=== PATIENT | male | born 1960 | race Caucasian/White ===

== ENCOUNTER 2018-11-02 22:57 | Inpatient (IN) | payer OTHER ==
[2018-11-02] MEDS: DILTIAZEM 25 MG INJ IV (23:43)
[2018-11-02] MEDS: ASPIRIN 325 MG TAB PO (23:43)
[2018-11-03] MEDS: DILTIAZEM 60 MG TAB PO (00:11)
[2018-11-03] MEDS: DILTIAZEM-D5W 125MG/125ML DRIP 125 ML IV ×2 (00:19→21:15)
[2018-11-03] MEDS ORDERED: ACETAMINOPHEN 325 MG TAB PO (01:00)
[2018-11-03] MEDS ORDERED: ONDANSETRON 4 MG INJ IV ×2 (01:00→04:00)
[2018-11-03] MEDS ORDERED: NITROGLYCERIN (SL) 0.4 MG TAB SL (04:00)
[2018-11-03] MEDS ORDERED: NACL 0.9% 3 ML SYG IV (04:00)
[2018-11-03] MEDS: SOD CHLORIDE 0.9% 500 ML IV (04:54)
[2018-11-03] MEDS ORDERED: ASPIRIN (EC) 325 MG TAB PO (09:00)
[2018-11-03] MEDS: ENOXAPARIN 40 MG/0.4 ML SYG SC (10:06)
[2018-11-03] MEDS: METOPROLOL (XL) 25 MG TAB PO (14:20)
[2018-11-04] MEDS: METOPROLOL (XL) 25 MG TAB PO (08:23)
[2018-11-04] MEDS: DIGOXIN 500 MCG INJ IV (15:42)
[2018-11-04] MEDS: DILTIAZEM 60 MG TAB PO ×2 (15:43→18:00)
[2018-11-04] MEDS: SOD CHLORIDE 0.9% 100 ML (16:33)
[2018-11-04] MEDS: IOHEXOL 100 ML (16:33)
[2018-11-04] MEDS: DILTIAZEM-D5W 125MG/125ML DRIP 125 ML IV (20:39)
[2018-11-04] MEDS: ACETAMINOPHEN 325 MG TAB PO (22:34)
[2018-11-05] MEDS: DILTIAZEM 60 MG TAB PO ×3 (00:33→12:34)
[2018-11-05] MEDS: DILTIAZEM (CD) 120 MG CAP PO ×2 (13:30→19:54)
[2018-11-05] MEDS: DILTIAZEM-D5W 125MG/125ML DRIP 125 ML IV (21:00)
[2018-11-06] MEDS: DILTIAZEM (CD) 120 MG CAP PO ×2 (09:42→20:12)
[2018-11-06] MEDS: AMIODARONE 200 MG TAB PO ×2 (14:34→20:12)
[2018-11-06] MEDS: DILTIAZEM-D5W 125MG/125ML DRIP 125 ML IV (20:02)
[2018-11-07] MEDS: DILTIAZEM (CD) 120 MG CAP PO (09:29)
[2018-11-07] MEDS: AMIODARONE 200 MG TAB PO (09:29)
== END 2018-11-07 14:30 | disposition home or self-care (01) | DRG 309 ==
LOC: E/R 22:57 → 6WM 11-03 00:32
DX: I48.0 Paroxysmal atrial fibrillation (principal); I31.3 Pericardial effusion (noninflammatory); I31.2 Hemopericardium, not elsewhere classified; I48.92 Unspecified atrial flutter; G51.0 Bell's palsy; F41.9 Anxiety disorder, unspecified
CPT/HCPCS: 36415; 71045; 71275; 80048; 80053; 80061; 80069; 82550; 82553; 83036; 83735; 83880; 84100; 84439; 84443; 84484; 85025; 85610; 85730; 93005; 93306; 93308; 96374; 96375; 99285-25